=== PATIENT | female | born 1985 | race Caucasian/White ===

== ENCOUNTER 2024-08-16 20:51 | Emergency (ER) | payer SELFPAY ==
[2024-08-16 20:56] VITALS: BP 122/79; PULSE 79; RESP 18; TEMP 36.8; O2SAT 99
--- NOTE | 2024-08-16 21:05 | ED_ITS ---
HPI - General Adult General Chief complaint: Wound/Laceration Stated complaint: cut Time Seen by Provider: 08/16/24 21:05 Source: patient and family Mode of arrival: ambulatory Limitations: no limitations History of Present Illness HPI narrative: 39-year-old white female accidentally cut her distal right forearm with a knife just before coming to the emergency department. She was given a tetanus shot in the emergency department. She denies any loss of function in her arm wrist hand or fingers. She is walking talking seeing and hearing fine without any nausea vomiting diarrhea problems voiding or stooling cough fever sore throat runny nose weakness or numbness or paresthesias or any other complaints. Related Data Home Medications ?Medication ?Instructions ?Recorded ?Confirmed ?Last Taken ?Type No Home Medications 08/16/24 08/16/24 Unknown History Allergies Allergy/AdvReac Type Severity Reaction Status Date / Time No Known Allergies Allergy Verified 08/16/24 20:54 Review of Systems Review of Systems: All systems reviewed & are unremarkable except as noted in HPI and below Exam Narrative: White female no apparent distress head is normocephalic atraumatic eyes conjunctiva pink sclera nonicteric extremities: Left forearm radial aspect has a 2 cm laceration without any foreign bodies associated with mild tenderness. She has normal radial pulse capillary refill no tendon injury she has good strength with extension and flexion of her hands wrist. She has normal above forearm. Neurological issues alert and oriented x4 motor and sensory normal. Course Vital Signs Vital signs: Vital Signs Temperature 36.8 C 08/16/24 20:56 Pulse Rate 79 08/16/24 20:56 Respiratory Rate 18 08/16/24 20:56 Blood Pressure 122/79 08/16/24 20:56 Pulse Oximetry 99 08/16/24 20:56 Oxygen Delivery Room Air 08/16/24 20:56 Temperature 36.8 C 08/16/24 20:56 Pulse Rate 79 08/16/24 20:56 Respiratory Rate 18 08/16/24 20:56 Blood Pressure 122/79 08/16/24 20:56 Pulse Oximetry 99 08/16/24 20:56 Oxygen Delivery Room Air 08/16/24 20:56 Medical Decision Making [facility] Narrative Medical decision making narrative: Patient Placed in room 7 with her mother Independent Historian: ? mother Differential Dx includes but not limited to: Medications were Reviewed:? ? Medications treatments given: Tdap Procedure Name: Laceration Repair Indication: Reduce risk of infection Location: _ left forearm___ Pre-Procedure Diagnosis: Laceration left forearm 2 cm Post-Procedure Diagnosis: Repaired Laceration Informed verbal consent was obtained before procedure started. PROCEDURE: The appropriate timeout was taken. The area was prepped and draped in the usual sterile fashion. Local anesthesia was achieved using 5cc of ?Lidocaine 1% without epinephrine. The wound was copiously irrigated. and cleansed with wound glass cleaner and then 3, 4-0 Nylon interrupted sutures were placed. with good approximation of the wound edges. Estimated blood loss was less than 0.5 mL. A dressing was applied to the area and anticipatory guidance, as well as standard post-procedure care, was explained. Return precautions are given.?The patient tolerated the procedure well without complications. Follow-up visit set for suture removal and evaluation of the laceration. Independently Interpreted by me:? External Source Review:?? Medical conditions/social Situation Impacting Patients Care:?? Shared decision Making:? Evaluation was discussed with the patient her mother all questions were asked and answered they agreed with the plan. Discussed with ? Clinical impression:? ? Laceration left forearm ? Patient disposition: ? discharge home ? Condition at discharge: stable Vital Signs Vital Signs: Vital Signs Temperature 36.8 C 08/16/24 20:56 Pulse Rate 79 08/16/24 20:56 Respiratory Rate 18 08/16/24 20:56 Blood Pressure 122/79 08/16/24 20:56 Pulse Oximetry 99 08/16/24 20:56 Oxygen Delivery Room Air 08/16/24 20:56 Temperature 36.8 C 08/16/24 20:56 Pulse Rate 79 08/16/24 20:56 Respiratory Rate 18 08/16/24 20:56 Blood Pressure 122/79 08/16/24 20:56 Pulse Oximetry 99 08/16/24 20:56 Oxygen Delivery Room Air 08/16/24 20:56 Discharge Plan Discharge Clinical Impression: Laceration Forearm laceration Qualifiers: Encounter type: initial encounter Laterality: left Qualified Code(s): S51.812A - Laceration without foreign body of left forearm, initial encounter Patient Disposition: Home Condition: Stable Instructions: Laceration (ED) Additional Instructions: have your primary care provider removed the sutures and 7-10 days. Take Tylenol as needed for pain. Put hydrogen peroxide on the wound daily. Return if you get worse or develops any signs of infection red hot painful swollen or pus discharge. Patient Language: Egyptian Prescriptions: No Action No Home Medications Follow-up/Referrals: Kavon Diaz MD [Primary Care Provider] - Time of Disposition: 21:33
[2024-08-16] MEDS: LIDOCAINE 1% LOCAL INJ 10 ML VIAL (21:16)
[2024-08-16] MEDS: TETANUS,DIPHTHERIA,AC PERTUSSIS ADULT 0.5 ML (ADACEL) IM (21:21)
[2024-08-16 21:48] VITALS: BP 133/71; PULSE 82; RESP 18; TEMP 36.6; O2SAT 98
== END 2024-08-16 21:49 | disposition home or self-care (01) ==
LOC: CHSED 21:43
PROVIDERS: Emergency Provider Emergency Medicine; PCP Internal Medicine
DX: S51.811A Laceration without foreign body of right forearm, initial encounter (principal); W26.0XXA Contact with knife, initial encounter; Z23 Encounter for immunization
CPT/HCPCS: 12001; 90471; 90715; 99282; J2003